=== PATIENT | male | born 1990 | race Caucasian/White ===

== ENCOUNTER 2023-08-07 08:15 | Outpatient (OUT) | payer BC, SELFPAY ==
[2023-08-07 12:59] LABS: Alanine Aminotransferase 41 U/L (16-63); Albumin Level 3.6 g/dL (3.4-5.0); Alkaline Phosphatase 84 U/L (46-116); Anion Gap 11.9; Aspartate Amino Transferase 14 U/L (15-37); BUN Creatinine Ratio 17.8; Bilirubin Total 0.7 mg/dL (0.2-1.0); Calcium 8.9 mg/dL (8.5-10.1); Carbon Dioxide 28.9 mmol/L (21.0-32.0); Chloride 101 mmol/L (98-107); Cholesterol 205 mg/dL (<=200); Estimated GFR (African America >60 (>=60); Estimated GFR (Non-African Ame >60 (>=60); Globulin 3.5 g/dL; Glucose 110 mg/dL (74-106); HDL Cholesterol 34 mg/dL (40-60); Potassium 3.8 mmol/L (3.5-5.1); Sodium 138 mmol/L (136-145); Total Protein 7.1 g/dL (6.4-8.2); Triglycerides 152 mg/dL (<=150); VLDL CHOLESTEROL 30.4 mg/dL
== END 2023-08-07 08:16 | disposition home or self-care (01) ==
LOC: LAB 08:19
PROVIDERS: PCP Family Medicine; Visit Provider Family Medicine
DX: Z13.6 Encounter for screening for cardiovascular disorders (principal)
CPT/HCPCS: 36415; 80053; 80061

== ENCOUNTER 2024-04-12 00:09 | Emergency (ER) | payer BC, SELFPAY ==
--- OUTSIDE RECORDS SUMMARY | 2024-04-12 00:16 | XMS_ITS | CCD ---
Author Organization [facility] Inform ion Partnership [facility] Care Team Providers Care Outbound Sales Professional Name Role Phone Luna Richey Unavailable LorenzoMireya Unavailable CHERRI, DR TORIBIO Willson Admitting Unavailable FURLONG, DR TORIBIO Willson Attending Unavailable FURLONG, DR TORIBIO Willson Primary Care Unavailable FURLONG, DR TORIBIO Willson Consulting Unavailable Furlong Toribio CARRENO Primary Care Provider Toribio Hurley MD Primary Care Provider [phone] DENNISE PEDERSEN Attending Unavailable HAZEL JULIAN Attending Unavailable ISI LAURENT Referring Unavailable RUSHER, DENNISE Mullins Attending Unavailable LASIHA PARK Attending Unavailable ISI LAURENT Referring Unavailable RUSHER, DENNISE Mullins Attending Unavailable RUSHER, DENNISE Mullins Referring Unavailable KUNISI Mullins Attending Unavailable FURLONG, TORIBIO G Referring Unavailable FURLONG, TORIBIO Willson Primary Care Unavailable FURLONG, TORIBIO Willson Attending Unavailable FURLONG, TORIBIO Willson Referring Unavailable FURLONG, TORIBIO Willson Primary Care Unavailable CAMI VILLALOBOS Attending Unavailable FURLONG, TORIBIO G Referring Unavailable FURLONG, TORIBIO Willson Primary Care Unavailable FURLONG, TORIBIO Willsno Referring Unavailable FURLONG, TORIBIO Willson Primary Care Unavailable Allergies Allergy Classification Reported Allergen(s) Allergy Type Date of Onset Reaction(s) Facility (9 sources) Ampicillin; Translations: [AMPICILLIN] Drug Allergy 02-12-20 19 Unknown [facility] Work Phone: (3 sources) Cefaclor; Translations: [Ceclor] Drug Allergy 07-01-20 unknow from young age [facility] (3 sources) Cefotaxime; Translations: [Claforan] Drug Allergy 07-01-20 16 see above [facility] (3 sources) Erythromycin / sulfiSOXAZOLE; Translations: [Pediazole] Drug Allergy 07-01-20 16 see above [facility] (2 sources) Sulfonamides (Antibiotic) Propensity to adverse reactions see above [facility] Other (1 source) Penicillins Drug allergy (disorder) 01-13-20 14 [facility] (1 source) Sulfonamides (Antibiotic) Drug allergy (disorder) 07-01-20 16 [facility] (7 sources) Cefaclor; Translations: [CEFACLOR] Drug Allergy 02-12-20 [facility] (7 sources) Cefotaxime; Translations: [CEFOTAXIME] Drug Allergy 02-12-20 19 [facility] (5 sources) Erythromycin / sulfiSOXAZOLE; Translations: [ERYTHROMYCIN-HARLEY LFISOXAZOLE] Drug Allergy 02-12-20 [facility] (7 sources) Sulfonamides (Antibiotic); Translations: [SULFA (SULFONAMIDE ANTIBIOTICS)] Propensity to adverse reactions to drug 02-12-20 [facility] Medications Current Medications Medication Drug Class(es) Dates Sig (Normalized) Sig (Original) albuterol 0.83 mg/ml inhalation solution (10 sources) beta2-Adrenergic Agonist Start: 05-14-2023 End: 10-31-2023 take 3 mL by inhalation every six hours as needed for wheezing albuterol (PROVENTIL,VENTOLIN ) 2.5 mg /3 mL (0.083 %) nebulizer solution Indications: Mild intermittent asthma with exacerbation , Upper respiratory tract infection, unspecified type Inhale 3 mL (2.5 mg total) by nebulization every 6 (six) hours as needed for wheezing. 150 mL 1 10/31/2023 Active Start: 10-17-2022 take 2 puff(s) by in halation every four hours as needed albuterol (PROVENTIL HFA;VENTOLIN HFA) 90 mcg/actuation inhaler Indications: Mild intermittent asthma with exacerbation albuterol sulfate HFA 90 mcg/actuation aerosol inhaler INHALE 2 PUFFS EVERY 4 HOURS BY INHALATION ROUTE NEEDED 18 g 6 10/17/2022 Active Start: 10-17-2022 take 2 puff(s) by in halation every four hours as needed albuterol HFA 90 mcg/act inhaler albuterol sulfate HFA 90 mcg/actuation aerosol inhaler INHALE 2 PUFFS EVERY 4 HOURS BY INHALATION ROUTE NEEDED 0 10/17/2022 Active Albuterol Active azithromycin 250 mg oral tablet (1 source) Macrolide Antimicrobial Start: 10-31-2023 End: 11-05-2023 take 1 tablet by mouth in the morning, then take 2 tablets by mouth once daily, then take 1 tablet by mouth once daily azithromycin (ZITHROMAX) 250 mg tablet Indications: Mild intermittent asthma with exacerbation Take 1 tablet (250 mg total) by mouth in the morning for 5 days. Take 2 tablets the first day, then 1 tablet daily for 4 days.. 6 tablet 0 10/31/2023 11/05/2023 Active brompheniramine maleate 0.4 mg/ml / dextromethorphan hydrobromide 2 mg/ml / pseudoephedrine hydrochloride 6 mg/ml oral solution (2 sources) alpha-Adrenergic Agonist, Uncompetitive J-rcllgn-D-aspartat e Receptor Antagonist, Sigma-1 Agonist Start: 10-31-2023 take 5 mL by mouth four times daily as needed brompheniramine- pseudoeph-DM 2-30-10 mg/5 mL syrup Indications: Mild intermittent asthma with exacerbation Take 5 mL by mouth 4 (four) times a day as needed for allergies. 120 mL 1 10/31/2023 Active 60 actuat budesonide 0.09 mg/actuat dry powder inhaler (3 sources) Corticosteroid Start: 07-13-2023 take 1 puff(s) by inhalation at bedtime budesonide (Pulmicort Flexhaler) 90 MCG/ACT inhaler INHALE 1 PUFF IN THE MORNING AND BEFORE BEDTIME 0 07/13/2023 Active Start: 07-13-2023 End: 09-19-2023 take 1 puff(s) by inhalation at bedtime budesonide (PULMICORT FLEXHALER) 90 mcg/actuation inhaler Indications: Unspecified asthma, uncomplicated INHALE 1 PUFF IN THE MORNING AND BEFORE BEDTIME 1 each 1 07/13/2023 09/19/2023 Discontinued (Therapy completed) dexamethasone 1 mg/ml / tobramycin 3 mg/ml ophthalmic suspension (1 source) Aminoglycoside Antibacterial, Corticosteroid Start: 01-11-2020 take 1 drop(s) into the eye(s) three times daily TobraDex 0.3-0.1 % 1 drop into affected eye Ophthalmic Three times a day for 7 days December, Active doxycycline hyclate 100 mg oral capsule (1 source) Tetracycline-class Drug Start: 09-19-2023 End: 09-26-2023 take 1 capsule by mouth in the morning, then take 1 capsule by mouth at bedtime doxycycline (VIBRAMYCIN) 100 mg capsule Take 1 capsule (100 mg total) by mouth in the morning and 1 capsule (100 mg total) before bedtime. Do all this for 7 days. 14 capsule 0 09/19/2023 09/26/2023 Active fexofenadine hydrochloride 180 mg oral tablet (3 sources) Histamine-1 Receptor Antagonist take 180 mg by mouth once daily fexofenadine HCl (PARIS ORAL) Take 180 mg by mouth daily. 0 Active fluticasone propionate 0.05 mg/actuat metered dose nasal spray (3 sources) Corticosteroid Start: 06-05-2023 take 2 spray(s) nasal route once daily fluticasone propionate (FLONASE) 50 mcg/actuation nasal spray Indications: Acute nasopharyngitis (common cold) SPRAY 2 SPRAYS INTO EACH NOSTRIL EVERY DAY FOR 30 DAYS 48 mL 1 06/05/2023 Active 30 actuat fluticasone furoate 0.1 mg/actuat / vilanterol 0.025 mg/actuat dry powder inhaler (4 sources) Corticosteroid, beta2-Adrenergic Agonist Start: 11-11-2023 take 1 puff(s) by inhalation in the morning fluticasone furoate-vilanteroL (BREO ELLIPTA) 100-25 mcg/dose blister with device INHALE 1 PUFF IN THE MORNING 60 each 1 11/11/2023 Active Start: 09-19-2023 End: 11-11-2023 take 1 puff(s) by inhalation in the morning fluticasone furoate-vilanteroL (BREO ELLIPTA) 100-25 mcg/dose blister with device Inhale 1 puff in the morning. 28 each 1 09/19/2023 11/11/2023 Discontinued hydroCHLOROthiazide 12.5 mg oral capsule (5 sources) Thiazide Diuretic Start: 07-30-2023 take 1 capsule by mouth once daily hydroCHLOROthiazide (MICROZIDE) 12.5 mg capsule Indications: Primary hypertension Take 1 capsule (12.5 mg total) by mouth daily. 90 capsule 3 07/30/2023 Active meloxicam 15 mg oral tablet (1 source) Nonsteroidal Anti-inflammatory Drug Start: 09-03-2023 End: 09-24-2023 take 1 tablet by mouth in the morning MOBIC 15 mg tablet Take 1 tablet (15 mg total) by mouth in the morning. 0 09/03/2023 09/24/2023 Active methylPREDNISolone (2 sources) Corticosteroid Start: 09-03-2023 methylPREDNISolone (Medrol Dospak) 4 MG tablets Indications: Plantar fasciitis Take as directed on package. 21 tablet 0 09/03/2023 Active montelukast 10 mg oral tablet (6 sources) Leukotriene Receptor Antagonist Start: 12-26-2022 take 1 tablet by mouth once daily montelukast (SINGULAIR) 10 mg tablet TAKE 1 TABLET BY MOUTH EVERY DAY 90 tablet 3 12/26/2022 Active Singulair Active predniSONE 20 mg oral tablet (2 sources) Start: 10-31-2023 End: 11-07-2023 take 1 tablet by mouth in the morning predniSONE (DELTASONE) 20 mg tablet Indications: Mild intermittent asthma with exacerbation Take 1 tablet (20 mg total) by mouth in the morning for 7 days. 7 tablet 0 10/31/2023 11/07/2023 Active Start: 05-17-2022 take 3 tablets by [facility] every twenty-four hours prednisone 20 MG 3 tablets Orally daily for 5 days Apr, Active Problems Active Problems Problem Classification Problem Date Documented Date Episodic/Chronic Asthma (13 sources) Acute exacerbation of asthma co-occurrent with allergic rhinitis; Translations: [Unspecified asthma with (acute) exacerbation] Onset: 05-06-2018 Chronic Diabetes mellitus without complication (1 source) Hyperglycemia, unspecified; Translations: [Hyperglycemia, unspecified] Onset: 02-04-2024 Episodic Disorders of lipid metabolism (3 sources) Hypertriglyceridemia; Translations: [Pure hyperglyceridemia] Onset: 05-27-2019 06-21-2022 Chronic Essential hypertension (5 sources) Essential hypertension; Translations: [Essential (primary) hypertension] Onset: 07-30-2023 07-30-2023 Chronic Immunizations and screening for infectious disease (3 sources) Encounter for screening for other viral diseases; Translations: [Contact with and (suspected) exposure to other viral communicable diseases] Onset: 06-15-2021 Resolved: 06-15-2021 Episodic Other connective tissue disease (1 source) Plantar fascial fibromatosis; Translations: [Plantar fascial fibromatosis] Onset: 02-04-2024 Episodic Other inflammatory condition of skin (1 source) Sunburn of second degree; Translations: [Sunburn of second degree] Onset: 02-04-2024 Episodic Other nutritional; endocrine; and metabolic disorders (3 sources) High density lipoprotein deficiency ; Translations: [Lipoprotein deficiency] Onset: 05-27-2019 06-21-2022 Chronic Other nutritional; endocrine; and metabolic disorders (3 sources) Morbid obesity; Translations: [Morbid (severe) obesity due to excess calories] Onset: 07-28-2019 06-21-2022 Chronic Other nutritional; endocrine; and metabolic disorders (2 sources) Morbid (severe) obesity due to excess calories; Translations: [Morbid (severe) obesity due to excess calories] Onset: 06-21-2022 Chronic Other screening for suspected conditions (not mental disorders or infectious disease) (4 sources) Encounter for screening for cardiovascular disorders; Translations: [ENC FOR SCREENING FOR CV DISORDERS] Onset: 07-18-2022 Episodic Otitis media and related conditions (1 source) Dysfunction of left eustachian tube; Translations: [Unspecified Eustachian tube disorder, left ear] 10-09-2023 Episodic Past or Other Problems Problem Classification Problem Date Documented Da te Episodic/Chronic Mood disorders (3 sources) Mood disorders Onset: 09-19-2023 Resolved: 10-31-2023 09-19-2023 Other lower respiratory disease (1 source) Shortness of breath Onset: 10-31-2023 Episodic Other upper respiratory disease (1 source) Pain in throat Onset: 10-31-2023 Episodic Other upper respiratory infections (5 sources) Acute recurrent maxillary sinusitis; Translations: [Acute maxillary sinusitis] Onset: 09-19-2023 09-19-2023 Episodic Unclassified (3 sources) Onset: 12-05-2023 12-05-2023 Results Test Name Value Interpretation Reference Range Facility BASIC METABOLIC PANLon 02-03 Anion gap [Moles/Vol] 10 mmol/L Normal 5-15 [facility] Comment on above: Performed By: #### JING Wood MP #### [facility] ([id number]) [address], [address] [place] [address] Calcium [Mass/Vol] 9.6 mg/dL Normal 8.5-10.5 [facility] Comment on above: Performed By: #### JING Wood MP #### [facility] ([id number]) [address], [address] [place] [address] Chloride [Moles/Vol] 101 mmol/L Normal 98-109 [facility] Comment on above: Performed By: #### JING Wood MP #### [facility] ([id number]) [address], [address] [place] [address] CO2 [Moles/Vol] 27 mmol/L Normal 22-32 [facility] Comment on above: Performed By: #### JING Wood MP #### [facility] ([id number]) [address], [address] [place] [address] Creatinine [Mass/Vol] 0.84 mg/dL Normal 0.60-1.30 [facility] Comment on above: Result Comment: METH OD TRACEABLE TO IDMS STANDARD Performed By: #### JING Wood MP #### [facility] ([id number]) [address], [address] [place] [address] eGFR (CKD-EPI) NON-RACE DEPENDENT >90 Normal >59 [facility] Comment on above: Result Comment: Reported eGFR is based on the CKD-EPI 2020 equation that does not use a race coefficient. Performed By: #### JING Wood MP #### [facility] ([id number]) [address], [address] [place] [address] Glucose [Mass/Vol] 90 mg/dL Normal 65-99 [facility] Comment on above: Performed By: #### B JING DOSS #### [facility] ([id number]) [address], [address] [place] [address] Potassium [Moles/Vol] 3.5 mmol/L Normal 3.5-5.0 [facility] Comment on above: Performed By: #### B SELAM, JING #### [facility] ([id number]) [address], [address] [place] [address] Sodium [Moles/Vol] 138 mmol/L Normal 134-146 [facility] Comment on above: Performed By: #### B JING DOSS #### [facility] ([id number]) [address], [address] [place] [address] Urea nitrogen [Mass/Vol] 13 mg/dL Normal 5-23 [facility] Comment on above: Performed By: #### B JING DOSS #### [facility] ([id number]) [address], [address] [place] [address] HGB A1C (GLYCO-HGB)on 2023 Glucose [Mass/Vol] 111 mg/dL Normal [facility] Comment on above: Performed By: #### JING Wood MP #### [facility] ([id number]) [address], [address] [place] [address] HbA1c (Bld) [Mass fraction] 5.5 % Normal 4.4-5.6 [facility] Comment on above: Result Comment: NOTE ADA Guidelines Result HgbA1c Normal : less than 5.7 % Prediabetes : 5.7 % to 6.4 % Diabetes : > 6.4 % Use with caution in patients with abnormal hemoglobin variants as the half-life of red blood cells and in vivo glycation rates are affected. Performed By: #### B JING DOSS #### [facility] ([id number]) [address], [address] [place] [address] Auditory function testson Bilateral Normal hearing [facility] e POCT rapid strep Aon 024 Internal Services Delivery Driver Check Completed and Passed Yes [facility] Interpretation and review of laboratory results Normal [facility] S. pyogenes Ag IA Ql (Unsp spec) Negative Negative [facility] LIPID PROFILEon 07-18-2022 CHOL-HDL RATIO NORM SEE BELOW Normal [facility] Comment on above: Result Comment: 3.3 - 4.4 LOW RISK 4.4 - 7.1 AVERAGE RISK 7.1 - 11.0 MODERATE RISK >11.0 HIGH RISK Performed By: #### C MP, LIPID #### [facility] [address] [address] [address] Lois Ugalde Cholesterol [Mass/Vol] 176 mg/dL Normal <=200 [facility] Comment on above: Performed By: #### C MP, LIPID #### [facility] [address] [address] [address] Lois Ugalde Cholesterol in HDL [Mass/Vol] 32 mg/dL Critically low 40-60 [facility] Comment on above: Performed By: #### C MP, LIPID #### [facility] [address] [address] [address] Lois Ugalde Cholesterol in LDL [Mass/Vol] 111.6 mg/dL Normal [facility] Comment on above: Performed By: #### C MP, LIPID #### [facility] [address] [address] [address] Lois Ugalde Cholesterol.total/C holesterol in HDL [Mass ratio] 5.5 {ratio} Normal [facility] Comment on above: Performed By: #### C MP, LIPID #### [facility] [address] [address] [address] Lois Ugalde HDL NORMAL > or = 60 mg/dl - LOW CARDIOVASCULAR RISK <40 mg/dl - HIGH CARDIOVASCULAR RISK Normal [facility] Comment on above: Performed By: #### C MP, LIPID #### [facility] [address] [place] [address] Dr. Lois Ugalde LDL CALC NORMAL SEE BELOW Normal [facility] Comment on above: Result Comment: <100 mg/dl OPTIMAL 100 - 129 mg/dl NEAR OR ABOVE OPTIMAL 130 - 159 mg/dl BORDERLINE HIGH 160 - 189 mg/dl HIGH >190 mg/dl VERY HIGH Performed By: #### C MP, LIPID #### [facility] [address] [place] [address] Dr. Lois Ugalde Triglyceride [Mass/Vol] 162 mg/dL Critically high <=150 [facility] Comment on above: Performed By: #### C MP, LIPID #### [facility] [address] [place] [address] Dr. Lois Ugalde VLDL CALC 32.4 mg/dL Normal [facility] Comment on above: Performed By: #### C MP, LIPID #### [facility] [address] [place] [address] Dr. Lois Ugalde PROF 14(COMP METB)on 022 Albumin [Mass/Vol] 3.8 g/dL Normal 3.4-5.0 [facility] Comment on above: Performed By: #### C MP, LIPID #### [facility] [address] [place] [address] Dr. Lois Ugalde Albumin/Globulin [Mass ratio] 1.2 {ratio} Normal [facility] Comment on above: Performed By: #### C MP, LIPID #### [facility] [address] [place] [address] Dr. Lois Ugalde ALP [Catalytic activity/Vol] 69 U/L Normal 46-116 [facility] Comment on above: Performed By: #### C MP, LIPID #### [facility] [address] [place] [address] Dr. Lois Ugalde ALT [Catalytic activity/Vol] 37 U/L Normal 16-63 [facility] Comment on above: Performed By: #### C MP, LIPID #### [facility] [address] [place] [address] Dr. Lois Ugalde Anion gap [Moles/Vol] 10.5 mmol/L Normal [facility] Comment on above: Performed By: #### C MP, LIPID #### [facility] [address] [place] [address] Dr. Lois Ugalde AST [Catalytic activity/Vol] 18 U/L Normal 15-37 [facility] Comment on above: Performed By: #### C MP, LIPID #### [facility] [address] [place] [address] Dr. Lois Ugalde Bilirubin [Mass/Vol] 0.9 mg/dL Normal 0.2-1.0 [facility] Comment on above: Performed By: #### C MP, LIPID #### [facility] [address] [place] [address] Dr. Lois Ugalde Calcium [Mass/Vol] 9.0 mg/dL Normal 8.5-10.1 [facility] Comment on above: Performed By: #### C MP, LIPID #### [facility] [address] [place] [address] Dr. Lois Ugalde Chloride [Moles/Vol] 105 mmol/L Normal 98-107 [facility] Comment on above: Performed By: #### C MP, LIPID #### [facility] [address] [place] [address] Dr. Lois Ugalde CO2 [Moles/Vol] 28.7 mmol/L Normal 21.0-32.0 [facility] Comment on above: Performed By: #### C MP, LIPID #### [facility] [address] [place] [address] Dr. Lois Ugalde Creatinine [Mass/Vol] 0.86 mg/dL Normal 0.70-1.30 [facility] Comment on above: Performed By: #### C MP, LIPID #### [facility] [address] [place] [address] Dr. Lois Ugalde EGFR-AF TRISTANIAN >60 Normal >=60 [facility] Comment on above: Performed By: #### C MP, LIPID #### [facility] [address] [place] [address] Dr. Lois Ugalde EGFR-NON AF TRISTANIAN >60 Normal >=60 [facility] Comment on above: Performed By: #### C MP, LIPID #### [facility] [address] [place] [address] Dr. Lois Ugalde Globulin (S) [Mass/Vol] 3.1 g/dL Normal [facility] Comment on above: Performed By: #### C MP, LIPID #### [facility] [address] [place] [address] Dr. Lois Ugalde Glucose [Mass/Vol] 99 mg/dL Normal 74-106 [facility] Comment on above: Performed By: #### C MP, LIPID #### [facility] [address] [place] [address] Dr. Lois Ugalde Potassium [Moles/Vol] 4.2 mmol/L Normal 3.5-5.1 [facility] Comment on above: Performed By: #### C MP, LIPID #### [facility] [address] [place] [address] Dr. Lois Ugalde Protein [Mass/Vol] 6.9 g/dL Normal 6.4-8.2 [facility] Comment on above: Performed By: #### C MP, LIPID #### [facility] [address] [place] [address] Dr. Lois Ugalde Sodium [Moles/Vol] 140 mmol/L Normal 136-145 [facility] Comment on above: Performed By: #### C MP, LIPID #### [facility] [address] [place] [address] Dr. Lois Ugalde Urea nitrogen [Mass/Vol] 12.0 mg/dL Normal 7.0-18.0 [facility] Comment on above: Performed By: #### C MP, LIPID #### [facility] [address] [place] [address] Dr. Lois Ugalde Urea nitrogen/Creatinine [Mass ratio] 14.0 mg/mg Normal [facility] Comment on above: Performed By: #### C MP, LIPID #### [facility] [address] [place] [address] Dr. Lois Ugalde SARS-CoV-2 (COVID-19) RNA NA A+probe Ql (Resp)on 05-17-2022 SARS-CoV-2 (COVID-19) RNA ADELA+probe Ql (Unsp spec) Negative [facility] Other COMPREHENSIVE METABOLIC PANE [facility] 07-05-2021 Albumin [Mass/Vol] 4.5 g/dL Normal 3.6-5.1 [facility] Comment on above: Performed By: #### 7 600, [id number] #### [facility] of [address], [address] [place] [address] [employer] Consultant: Lg Butcher MD Albumin/Globulin [Mass ratio] 2.0 {ratio} Normal 1.0-2.5 [facility] Comment on above: Performed By: #### 7 600, [id number] #### [facility] [address] [place] [address] [employer] Consultant: Lg Butcher MD ALP [Catalytic activity/Vol] 72 U/L Normal 36-130 [facility] Comment on above: Performed By: #### 7 600, [id number] #### [facility] [address] [place] [address] [employer] Consultant: Lg Butcher MD ALT [Catalytic activity/Vol] 31 U/L Normal 9-46 [facility] Comment on above: Performed By: #### 7 600, [id number] #### [facility] [address] [place] [address] [employer] Consultant: Lg Butcher MD AST [Catalytic activity/Vol] 21 U/L Normal 10-40 [facility] Comment on above: Performed By: #### 7 600, [id number] #### [facility] [address] [place] [address] [employer] Consultant: Lg Butcher MD Bilirubin [Mass/Vol] 0.9 mg/dL Normal 0.2-1.2 [facility] Comment on above: Performed By: #### 7 600, [id number] #### [facility] [address] [address] [employer]ant: Lg Butcher MD BUN/CREATININE RATIO NOT APPLICABLE Normal 6-22 [facility] Comment on above: Performed By: #### 7 600, 79721 #### [facility] [address] [place] [address] [employer] Consultant: Lg Butcher MD Calcium [Mass/Vol] 9.6 mg/dL Normal 8.6-10.3 [facility] Comment on above: Performed By: #### 7 600, 09165 #### [facility] [address] [place] [address] [employer] Consultant: Lg Butcher MD Chloride [Moles/Vol] 104 mmol/L Normal 98-110 [facility] Comment on above: Performed By: #### 7 600, [id number] #### [facility] [place] [address] [employer] Consultant: Lg Butcher MD CO2 [Moles/Vol] 28 mmol/L Normal 20-32 [facility] Comment on above: Performed By: #### 7 600, [id number] #### [facility] [place] [address] [employer] Consultant: Lg Butcher MD Creatinine [Mass/Vol] 0.85 mg/dL Normal 0.60-1.35 [facility] Comment on above: Performed By: #### 7 600, [id number] #### [facility] [place] [address] [employer] Business Consultant: Lg Butcher MD eGFR NON-AFR. TRISTANIAN 115 mL/min/1.73m2 Normal > OR = 60 [facility] Comment on above: Performed By: #### 7 600, 82715 #### [facility] of [place] [address] [employer] Consultant: Lg Butcher MD GFR/1.73 sq M.predicted among blacks MDRD (S/P/Bld) [Vol rate/Area] 134 mL/min/{1.73_m2} Normal > OR = 60 [facility] Comment on above: Performed By: #### 7 600, 85738 #### [facility] [place] [address] [employer] Consultant: Lg Butcher MD Globulin (S) [Mass/Vol] 2.2 g/dL Normal 1.9-3.7 [facility] Comment on above: Performed By: #### 7 600, 67431 #### [facility] of [address], [address] [place] [address] [employer] Consultant: Lg Butcher MD Glucose [Mass/Vol] 81 mg/dL Normal 65-99 [facility] Comment on above: Result Comment: Fasting reference interval Performed By: #### 7 600, [id number] #### [facility] [place] [address] [employer] Business Consultant: Lg Butcher MD Potassium [Moles/Vol] 4.1 mmol/L Normal 3.5-5.3 [facility] Comment on above: Performed By: #### 7 600, [id number] #### [facility] [place] [address] [employer] Business Consultant: Lg Butcher MD Protein [Mass/Vol] 6.7 g/dL Normal 6.1-8.1 [facility] Comment on above: Performed By: #### 7 600, 16209 #### [facility] [place] [address] [employer] Consultant: Lg Butcher MD Sodium [Moles/Vol] 140 mmol/L Normal 135-146 [facility] Comment on above: Performed By: #### 7 600, 29889 #### [facility] [place] [address] [employer] Consultant: Lg Butcher MD Urea nitrogen [Mass/Vol] 12 mg/dL Normal 7-25 [facility] Comment on above: Performed By: #### 7 600, 99765 #### [facility] of [address], [address] [place] [address] [employer] Consultant: Lg Butcher MD LIPID PANEL, [facility] 06-26 Cholesterol [Mass/Vol] 205 mg/dL High <200 [facility] Comment on above: Order Comment: FASTI NG:YES FASTING: YES Performed By: #### 7 600, 23090 #### [facility] [address], [address] [place] [address] [employer] Consultant: Lg Butcher MD Cholesterol in HDL [Mass/Vol] 35 mg/dL Low > OR = 40 [facility] Comment on above: Order Comment: FASTI NG:YES FASTING: YES Performed By: #### 7 600, 80515 #### [facility] [address], [address] [place] [address] [employer] Business Consultant: Lg Butcher MD Cholesterol in LDL [Mass/Vol] 138 mg/dL High [facility] Comment on above: Order Comment: FASTI NG:YES FASTING: YES Result Comment: Refe rence range: <100 Desirable range <100 mg/dL for primary prevention; <70 mg/dL for patients with CHD or diabetic patients with > or = 2 CHD risk factors. LDL-C is now calculated using the Celestine-Song calculation, which is a validated novel method providing better accuracy than the Friedewald equation in the estimation of LDL-C. Celestine WBEER et al. SMOOTH. 2013;310(19): 3179-0241 (http://education.[employer].inEarth/faq/UMJ784) Performed By: #### 7 600, 35785 #### [facility] [address], [address] [place] [address] [employer]anchise Business Consultant: Lg Butcher MD Cholesterol.total/C holesterol in HDL [Mass ratio] 5.9 {ratio} High <5.0 [facility] Comment on above: Order Comment: FASTI NG:YES FASTING: YES Performed By: #### 7 600, 86009 #### [facility] [address], [address] [place] [address] [employer] Business Consultant: Lg Butcher MD NON HDL CHOLESTEROL 170 mg/dL (calc) High <130 [facility] Comment on above: Order Comment: FASTI NG:YES FASTING: YES Result Comment: For patients with diabetes plus 1 major ASCVD risk factor, treating to a non-HDL-C goal of <100 mg/dL (LDL-C of <70 mg/dL) is considered a therapeutic option. Performed By: #### 7 600, 63557 #### [facility] [address] [place] [address], [address] [place] [address] [employer] Consultant: Lg Butcher MD Triglyceride [Mass/Vol] 183 mg/dL High <150 [facility] Comment on above: Order Comment: FASTI NG:YES FASTING: YES Performed By: #### 7 600, 96796 #### [facility] [address] [place] [address], [address] [place] [address] [employer] Consultant: Lg Butcher MD COVID Quick Testingon 2020 Result Negative [facility] Other Vital Signs Date Time Vital Sign Value Performing Clinician Facility 10-31-2023 11:33-0500 Body height 180.3 cm Isi Mehran HAYES-ELEMENTARY EDUCATION TEACHER Work Phone: [facility] 10-31-2023 11:33-0500 Body mass index (BMI) [Ratio] 47.11 kg/m2 Isi Laurent APRN-ELEMENTARY EDUCATION TEACHER Work Phone: [facility] 10-31-2023 11:33-0500 Body temperature 98.71 [degF] Isi Laurent APRN-ELEMENTARY EDUCATION TEACHER Work Phone: [facility] 10-31-2023 11:33-0500 Body weight 153.22 kg Isi Laurent APRN-ELEMENTARY EDUCATION TEACHER Work Phone: [facility] 10-31-2023 11:33-0500 Diastolic blood pressure 90 mm[Hg] Isi Laurent APRN-ELEMENTARY EDUCATION TEACHER Work Phone: [facility] 10-31-2023 11:33-0500 Heart rate 91 /min Isi Laurent APRN-ELEMENTARY EDUCATION TEACHER Work Phone: [facility] 10-31-2023 11:33-0500 SaO2% (BldA) [Mass fraction] 96 % Isi Laurent WORKPLACE RELATIONS ADVISER-ELEMENTARY EDUCATION TEACHER Work Phone: [facility] 10-31-2023 11:33-0500 Systolic blood pressure 130 mm[Hg] Isi Laurent WORKPLACE RELATIONS ADVISER-ELEMENTARY EDUCATION TEACHER Work Phone: [facility] 09-19-2023 15:10-0500 Body height 180.3 cm Camiritesh Villalobos WORKPLACE RELATIONS ADVISER-OFFSHORE DIVER Work Phone: [facility] 09-19-2023 15:10-0500 Body mass index (BMI) [Ratio] 47.23 kg/m2 Cami Devin WORKPLACE RELATIONS ADVISER-OFFSHORE DIVER Work Phone: [facility] 09-19-2023 15:10-0500 Body temperature 97.9 [degF] Camiritesh Villalobos WORKPLACE RELATIONS ADVISER-OFFSHORE DIVER Work Phone: [facility] 09-19-2023 15:10-0500 Body weight 153.59 kg Cami Devin WORKPLACE RELATIONS ADVISER-OFFSHORE DIVER [facility] 09-19-2023 15:10-0500 Diastolic blood pressure 80 mm[Hg] Camiritesh Villalobos WORKPLACE RELATIONS ADVISER-OFFSHORE DIVER Work Phone: [facility] 09-19-2023 15:10-0500 Heart rate 95 /min Camiritesh Villalobos WORKPLACE RELATIONS ADVISER-OFFSHORE DIVER Work Phone: [facility] 09-19-2023 15:10-0500 SaO2% (BldA) [Mass fraction] 96 % Cami Devin WORKPLACE RELATIONS ADVISER-OFFSHORE DIVER [facility] 09-19-2023 15:10-0500 Systolic blood pressure 140 mm[Hg] Cami Devin WORKPLACE RELATIONS ADVISER-OFFSHORE DIVER [facility] 05-17-2022 11:35-0400 Body height 180.34 cm Mireya Ventura Other [facility] Other 05-17-2022 11:35-0400 Body mass index (BMI) [Ratio] 44.63 kg/m2 Mireya Ventura Other [facility] Other 05-17-2022 11:35-0400 Body temperature 98.3 [degF] Mireya Ventura Other [facility] Other 05-17-2022 11:35-0400 Body weight 145.15 kg Mireya Ventura Other [facility] Other 05-17-2022 11:35-0400 Respiratory rate 18 /min Mireya Ventura Other [facility] Other 05-17-2022 11:35-0400 SaO2% (BldA) [Mass fraction] 96 % Mireya Ventura Other [facility] Other Encounters Encounter Date Encounter Type Care Provider Facility Start: 02-04-2024 End: 02-04-[address] [facility] Start: 02-04-2024 End: 02-04-2024 ambulatory [facility] Start: 11-11-2023 Refill Cami Villalobos WORKPLACE RELATIONS ADVISER-OFFSHORE DIVER Work Phone: [facility] Start: 10-31-2023 End: 10-31-2023 Office outpatient visit 15 minutes Brigida Kuns WORKPLACE RELATIONS ADVISER-ELEMENTARY EDUCATION TEACHER Work Phone: [facility] Comment on above: Mild intermittent as thma with exacerbation (Primary Dx); Upper respiratory tract infection, unspecified type Start: 10-31-2023 End: 10-31-2023 ambulatory ISI LAURENT [facility] Start: 10-23-2023 End: 10-23-2023 ambulatory LAISHA H TIMMIS Not Available Start: 10-16-2023 End: 10-16-2023 ambulatory DENNISE S RUSHER Not Available Start: 10-09-2023 Bamboo flowsheet Hazel orta CCC-A Work Phone: [facility] Start: 10-09-2023 Bamboo flowsheet Hazel orta CCC-A Work Phone: [facility] Start: 10-09-2023 End: 10-09-2023 ambulatory HAZEL JULIAN Not Available Start: 10-09-2023 End: 10-09-2023 Clinical Support Hazel Julian CCC-A Work Phone: [facility] Comment on above: Dysfunction of left eustachian tube (Primary Dx) Start: 09-19-2023 End: 09-19-2023 Office outpatient visit 15 minutes [facility] WORKPLACE RELATIONS ADVISER-OFFSHORE DIVER Work Phone: [facility] Comment on above: Acute recurrent maxi llary sinusitis (Primary Dx); Mild persistent asthma without complication; Pharyngitis, unspecified etiology Start: 09-19-2023 End: 09-19-2023 ambulatory [facility] Start: 09-03-2023 End: 09-03-2023 ambulatory DENNISE S RUSHER Not Available Start: 07-25-2023 End: 07-25-2023 ambulatory DENNISE S RUSHER Not Available Start: 07-18-2022 End: 07-19-[address] TORIBIO HURLEY Facility: Start: 05-17-2022 End: 05-17-2022 ambulatory Mireya Ventura Other [facility] Other Start: 05-17-2022 Office outpatient vi sit 25 minutes Mireya Ventura [facility] [place] Start: 06-15-2021 End: 06-15-2021 ambulatory Luna Richey Other [facility] Other Start: 06-15-2021 Office outpatient vi sit 5 minutes Luna Richey [facility] [place] Procedures Date Procedure Procedure Detail Performing Clinician Start: 02-04-2024 Follow-up visit Follow-up TORIBIO HURLEY Start: 10-31-2023 Adult depression scr eening assessment Isi Laurent WORKPLACE RELATIONS ADVISER-ELEMENTARY EDUCATION TEACHER Work Phone: Start: 10-09-2023 AUDITORY FUNCTION TESTS Hazel Jovani Iesha [facility] Work Phone: Start: 09-19-2023 Iaadiadoo streptococ cus group a Cami Villalobos WORKPLACE RELATIONS ADVISER-OFFSHORE DIVER Work Phone: Start: 09-19-2023 Adult depression scr eening assessment Cami Villalobos WORKPLACE RELATIONS ADVISER-[facility] Work Phone: Plan of Treatment Date Care Activity Detail Author Start: 05-13-2028 DTaP,Tdap and Td Vaccines (2 - Td or Tdap) DTaP,Tdap and Td Vaccines (2 - Td or Tdap) [facility] Start: 10-30-2024 Adult BMI Screening Adult BMI Screen ing [facility] Start: 10-30-2024 Depression Screening Depression Scre ening [facility] Start: 10-30-2024 Tobacco Screening Tobacco Screening [facility] Start: 09-19-2024 Adult BMI Screening Adult BMI Screen ing [facility] Start: 09-19-2024 Depression Screening Depression Scre ening [facility] Start: 09-19-2024 Tobacco Screening Tobacco Screening [facility] Start: 07-30-2024 Adult BMI Follow Up Plan Adult BMI Follow Up Plan [facility] Start: 02-04-2024 End: 02-04-2024 Patient encounter procedure 02/04/2024 1:30 PM EDT Office Visit [facility] [address] [place] [address] Toribio Hurley, [address] [place], [facility] [place] [address] [facility] Start: 10-23-2023 End: 10-23-2023 Patient encounter procedure 10/23/2023 8:10 AM EST Office Visit [facility] [address] [facility] [address] [place] [phone] Laisha Park MD [address] [facility] [address] [place] [address] [facility] Start: 10-16-2023 End: 10-16-2023 Patient encounter procedure 10/16/2023 9:00 AM EST Office Visit [facility] [address] [place] [id number] Dennise Pedersen, DIANE [address] [place] [address] [facility] Start: 10-09-2023 End: 10-09-2023 Clinical Support 10/09/2023 8:45 AM EST Clinical Support [facility] [address] [facility] [address] [place] [phone] Hazel Julian, [facility] [address] [place] [address] Arrived [facility] Comment on above: Arrived Start: 04-26-2023 Influenza vaccination Influenza Vacc ine [facility] Immunizations Immunization Date Immunization Notes Care Provider Fa cili 05-26-2019 Influenza, injectabl e, Madin Melly Canine Kidney, quadrivalent with preservative Cami Devin WORKPLACE RELATIONS ADVISER-OFFSHORE DIVER Work Phone: [facility] 05-26-2019 influenza virus vaccine, unspecified formulation Cami Devin WORKPLACE RELATIONS ADVISER-OFFSHORE DIVER Work Phone: [facility] 06-10-2018 Influenza, injectabl e, Madin Melly Canine Kidney, preservative free, quadrivalent Cami Devin WORKPLACE RELATIONS ADVISER-OFFSHORE DIVER Work Phone: [facility] 05-13-2018 tetanus toxoid, redu natalie diphtheria toxoid, and acellular pertussis vaccine, adsorbed Cami Devin WORKPLACE RELATIONS ADVISER-OFFSHORE DIVER Work Phone: [facility] Payers Date Payer Category Payer Unknown [id number] 1988 Unknown [id number] 2.16.84 [id number] 1988 Unknown [id number] 2.16.84 [id number] 1988 Unknown [id number] 2.16.84 [id number] 1988 Unknown [id number] 2.16.84 [id number] 1988 Unknown [id number] 2.16.84 [id number] 1988 Unknown [id number] 1988 Unknown [id number] [id number] 1988 Unknown [id number] 2.16.8 [id number] 1988 Unknown [id number] 2.16.8 [id number] 1988 Unknown [id number] 2.16.8 [id number] 1988 Unknown [id number] 2.16.8 [id number] 1959 [facility] [id number] Social History Date Type Detail Facility Unknown if ever smoked [facility] Other Start: 07-24-2022 End: 10-31-2023 Sex Assigned At [facility] Other Start: 07-24-2022 End: 07-25-2023 Tobacco smoking status NHIS Never smoked tobacco [facility] Start: 07-24-2022 End: 07-25-2023 Tobacco use and exposure Smokeless tobacco non-user [facility] Start: 09-19-2023 End: 10-31-2023 Alcohol intake Ex-drinker (finding) [facility] Start: 07-24-2022 End: 09-19-2023 Alcohol intake [facility] Do you belong to any clubs or organizations such as religious groups, unions, fraternal or athletic groups, or school groups? No [facility] Are you now , , , , never or living with a partner? [facility] How often to you hav e a drink containing alcohol? 2-3 time sa week [facility] How many standard dr inks containing alcohol do you have on a typical day? 1 or 2 [facility] How often do you hav e 6 or more drinks on 1 occasion? Never [facility] How hard is it for y ou to pay for the very basics like food, housing, medical care, and heating Not hard at all [facility] Do you feel stress - tense, restless, nervous, or anxious, or unable to sleep at night because your mind is troubled all the time - these days [OSQ] Not at all [facility] Start: 1990 Sex Assigned At Not on file [facility] Start: 09-03-2023 Alcohol intake Current drinker of alcohol (finding) [facility] How often to you hav e a drink containing alcohol? Monthly or less [facility] How often do you hav e 6 or more drinks on 1 occasion? Monthly [facility] Clinical Notes 06-15-2021 to 10-31-2023 Isi Laurent, LEONEL - 10/31/2023 11:40 AM Elina Julian CCC-Jovani - 10/09/2023 8:45 AM BASSEM Grant - 09/19/2023 3:10 PM EST Note Date & Type Note Facility 10-31-2023 History of Present illness Narrative Subjective Patient ID: Lowell Nolasco is a 32 y.o. male. Symptom onset Saturday of this week Chills, unknown fever as he hasn't checked his temperature Feels short of breath with exertion He started breathing treatments last night Throat feels dry and irritated Feels nauseated but hasn't thrown up Drinking ok His daughter had similar symptoms are just starting to resolve that started a week ago The following portions of the patient's history were reviewed and updated as appropriate: allergies, current medications, past family history, past medical history, past social history, past surgical history, problem list, and medication reconciliation was completed including current medication and post discharge medication. Review of Systems Constitutional: Positive for activity change, chills and fatigue. HENT: Positive for congestion, rhinorrhea and sore throat. Eyes: Negative. Respiratory: Positive for cough, shortness of breath and wheezing. Endocrine: Negative. Genitourinary: Negative. Musculoskeletal: Negative. Skin: Negative. Allergic/Immunologic: Negative. Neurological: Negative. Hematological: Negative. Psychiatric/Behavioral: Negative. Objective Physical Exam Vitals and nursing note reviewed. Constitutional: General: He is not in acute distress. Appearance: He is obese. HENT: Right Ear: Tympanic membrane, ear canal and external ear normal. Ears: Comments: Left tm is opaque but not red Nose: Congestion and rhinorrhea present. Mouth/Throat: Pharynx: Posterior oropharyngeal erythema present. Eyes: Conjunctiva/sclera: Conjunctivae normal. Cardiovascular: Rate and Rhythm: Normal rate and regular rhythm. Heart sounds: Normal heart sounds. No murmur heard. Pulmonary: Breath sounds: Rhonchi (posterior with exhalation) present. Musculoskeletal: Right lower leg: No edema. Left lower leg: No edema. Lymphadenopathy: Cervical: No cervical adenopathy. Skin: General: Skin is warm and dry. Neurological: Mental Status: He is alert and oriented to person, place, and time. Psychiatric: Thought Content: Thought content normal. Judgment: Judgment normal. Assessment/Plan Lowell was seen today for shortness of breath and sore throat. Diagnoses and all orders for this visit: Mild intermittent asthma with exacerbation - predniSONE (DELTASONE) 20 mg tablet; Take 1 tablet (20 mg total) by mouth in the morning for 7 days. - azithromycin (ZITHROMAX) 250 mg tablet; Take 1 tablet (250 mg total) by mouth in the morning for 5 days. Take 2 tablets the first day, then 1 tablet daily for 4 days.. - oylfaibxkwlxiiz-autpshgvi-GR 2-30-10 mg/5 mL syrup; Take 5 mL by mouth 4 (four) times a day as needed for allergies. - albuterol (PROVENTIL,VENTOLIN) 2.5 mg /3 mL (0.083 %) nebulizer solution; Inhale 3 mL (2.5 mg total) by nebulization every 6 (six) hours as needed for wheezing. Upper respiratory tract infection, unspecified type - albuterol (PROVENTIL,VENTOLIN) 2.5 mg /3 mL (0.083 %) nebulizer solution; Inhale 3 mL (2.5 mg total) by nebulization every 6 (six) hours as needed for wheezing. He is to continue his nebs at least 3 times daily for the next few days Off work for the next 4 days - he may return 11/03 He is to rest and hydrate, continue maintenance medications He has taken zithromax before without problems and will prednisone and something for cough as well LEONEL Lopez 10/31/23 1230 documented in this encounter [facility] 10-09-2023 History of Present illness Narrative History: Pt was referred to ENT because of left ear infection. Onset of infection was 1 year ago. Pt recently saw his physician and was told he still has fluid in the left ear. Initially pt's ear felt plugged and his hearing was decreased. Currently his hearing seems OK. History is positive for noise exposure (hunting and shooting.) History id positive for COM both ears as a child. Pt does not think he ever had ear surgery. Otoscopic Exam: Ear canal clear and TM intact AU Pure Tone Audiometry Right Ear: Normal hearing Left Ear: Normal hearing Speech Audiometry Right SRT = 20 dB and word discrimination score at 50 dBHL = 100% Left SRT = 20 dB and word discrimination score at 50 dBHL = 96% Tympanometry Right Ear: Type A tympanogram Left Ear: Type C tympanogram documented in this encounter [facility] 09-19-2023 History of Present illness Narrative [address] [place] [address] Patient: Lowell Nolasco Date of : 1990 Encounter Date: 09/19/2023 History of Present Illness: The patient is a 32 y.o. male, an established patient, and is here for Chief Complaint Patient presents with Sore Throat 2 weeks,burn on rt arm . HPI For the last 2 weeks patient has had a sore throat, increased sinus drainage, congestion, nonproductive cough, hoarse voice. He does not feel he has had any fevers but his symptoms are not improving. He does not feel his asthma has worsened with these upper respiratory symptoms, although his asthma has not been well controlled over the last 1 year. He has been in for a few visits for asthma exacerbations and has had to be on steroids. He states he used to use Advair Diskus when he was younger and he felt his symptoms were better controlled at that time. Problem List Items Addressed This Visit Respiratory Asthma Relevant Medications fluticasone furoate-vilanteroL (BREO ELLIPTA) 100-25 mcg/dose blister with device Other Visit Diagnoses Acute recurrent maxillary sinusitis - Primary Pharyngitis, unspecified etiology Relevant Orders POCT rapid strep A Past Medical, Family, and Social History Update: The following portions of the patient's history were reviewed and updated as appropriate: allergies, current medications, past family history, past medical history, past social history, past surgical history and problem list. Past Medical History: Diagnosis Date Asthma Seasonal allergies No past surgical history on file. Current Outpatient Medications Medication Sig Dispense Refill albuterol (PROVENTIL HFA;VENTOLIN HFA) 90 mcg/actuation inhaler albuterol sulfate HFA 90 mcg/actuation aerosol inhaler INHALE 2 PUFFS EVERY 4 HOURS BY INHALATION ROUTE NEEDED 18 g 6 albuterol (PROVENTIL,VENTOLIN) 2.5 mg /3 mL (0.083 %) nebulizer solution Inhale 3 mL (2.5 mg total) by nebulization every 6 (six) hours as needed for wheezing. 150 mL 1 fexofenadine HCl (PARIS ORAL) Take 180 mg by mouth daily. fluticasone propionate (FLONASE) 50 mcg/actuation nasal spray SPRAY 2 SPRAYS INTO EACH NOSTRIL EVERY DAY FOR 30 DAYS 48 mL 1 hydroCHLOROthiazide (MICROZIDE) 12.5 mg capsule Take 1 capsule (12.5 mg total) by mouth daily. 90 capsule 3 MOBIC 15 mg tablet Take 1 tablet (15 mg total) by mouth in the morning. montelukast (SINGULAIR) 10 mg tablet TAKE 1 TABLET BY MOUTH EVERY DAY 90 tablet 3 doxycycline (VIBRAMYCIN) 100 mg capsule Take 1 capsule (100 mg total) by mouth in the morning and 1 capsule (100 mg total) before bedtime. Do all this for 7 days. 14 capsule 0 fluticasone furoate-vilanteroL (BREO ELLIPTA) 100-25 mcg/dose blister with device Inhale 1 puff in the morning. 28 each 1 No current facility-administered medications for this visit. (All medications reviewed and updated by provider since last office visit or hospitalization) Allergies: Ampicillin, Ceclor [cefaclor], Claforan [cefotaxime], Pediazole [erythromycin-sulfisoxazole], and Sulfa (sulfonamide antibiotics) Tobacco History: Social History Tobacco Use Smoking Status Never Smokeless Tobacco Never (If patient a smoker, smoking cessation counseling offered) Social History: Social History Substance and Sexual Activity Alcohol Use Not Currently Alcohol/week: 4.0 standard drinks of alcohol Types: 4 Cans of beer per week Review of Systems: Review of Systems Constitutional: Positive for fatigue. Negative for fever. HENT: Positive for congestion, postnasal drip, rhinorrhea, sinus pressure and sore throat. Respiratory: Positive for cough. Negative for chest tightness, shortness of breath and wheezing. Cardiovascular: Negative. Gastrointestinal: Negative. Neurological: Positive for headaches. Physical Exam: BP 140/80 (BP Site: Left Arm, BP Postition: Sitting) Pulse 95 Temp 36.6 C (97.9 F) (Oral) Ht 180.3 cm (5' 11 ) Wt (!) 153.6 kg (338 lb 9.6 oz) SpO2 96% BMI 47.23 kg/m Physical Exam Vitals reviewed. Interpersonal Communications Professor present: here w daughter. Constitutional: Appearance: Normal appearance. He is obese. HENT: Head: Normocephalic and atraumatic. Right Ear: Ear canal normal. A middle ear effusion is present. Left Ear: Ear canal normal. A middle ear effusion is present. Nose: Congestion and rhinorrhea present. Right Sinus: No maxillary sinus tenderness or frontal sinus tenderness. Left Sinus: No maxillary sinus tenderness or frontal sinus tenderness. Mouth/Throat: Mouth: Mucous membranes are moist. Eyes: Pupils: Pupils are equal, round, and reactive to light. Cardiovascular: Rate and Rhythm: Normal rate and regular rhythm. Heart sounds: Normal heart sounds. Pulmonary: Effort: Pulmonary effort is normal. Breath sounds: Normal breath sounds. Abdominal: Palpations: Abdomen is soft. Tenderness: There is no abdominal tenderness. Musculoskeletal: General: No swelling. Lymphadenopathy: Cervical: No cervical adenopathy. Skin: General: Skin is warm. Capillary Refill: Capillary refill takes less than 2 seconds. Neurological: General: No focal deficit present. Mental Status: He is alert and oriented to person, place, and time. Psychiatric: Mood and Affect: Mood normal. Behavior: Behavior normal. Assessment and Plan: Lowell was seen today for sore throat. Diagnoses and all orders for this visit: Acute recurrent maxillary sinusitis Mild persistent asthma without complication Pharyngitis, unspecified etiology - POCT rapid strep A Other orders - fluticasone furoate-vilanteroL (BREO ELLIPTA) 100-25 mcg/dose blister with device; Inhale 1 puff in the morning. - doxycycline (VIBRAMYCIN) 100 mg capsule; Take 1 capsule (100 mg total) by mouth in the morning and 1 capsule (100 mg total) before bedtime. Do all this for 7 days. Follow-up: Patient's symptoms have been ongoing the last 2 weeks and have not improved so will start doxycycline for sinusitis- patient has multiple allergies. States doxycycline has worked well for him in the past when he has gotten sinus infections. Patient should keep follow-up with ENT on October 09 for recurrent sinusitis and middle ear fluid. Will step up his asthma therapy to Breo as patient has had a few asthma exacerbations this year and feels his asthma is not always under the best control. He was on Advair in the past but it is not clear which insurance will cover. Patient should follow-up with his PCP in January as scheduled. He was advised to get his flu shot at his pharmacy. BASSEM BARRIOS APRN-CNP 09/19/232010 documented in this encounter [facility] 05-17-2022 Evaluation note Encounter Date Diagnosis Assessment Notes Apr, Contact with and (suspected) exposure to other viral communicable diseases (ICD-10 - Z20.828) Apr, Acute exacerbation of asthma with allergic rhinitis (ICD-10 - J45.901) Advised patient that COVID antigen test was negative today. Advised patient that will treat as acute asthma exacerbation. Will send in rx of prednisone to use as directed. Encoruaged supportive care as directed, increase fluids and rest, Tylenol as directed, OTC Flonase, Paris-D, Albuterol Inhaler as needed, cool mist humidifier, throat lozenges. Discussed infection control practices such as good hand washing and mask wearing. Patient to follow up with PCP if symptoms persist or worsen despite treatment. Immediate eval for worsening SOB, difficulty, chest pain, fevers that do not break with antipyretic or any other concerning symptoms as reviewed on patient education handout. Patient verbalizes understanding and is agreeable to treatment plan. Patient left in stable condition [facility] Other 10-21-2021 Evaluation note* Encounter Date Diagnosis Assessment Notes Treatment Notes Treatment Clinical Notes May, Encounter for screening for other viral diseases (ICD-10 - Z11.59) May, Other Additional time spent conducting pre-visit phone call, screening for symptoms, instructions on social distancing, application and removal of PPE, and cleaning of examination room, equipment and supplies was preformed. Patient education given for testing methodology and results. Patient care instructions given in writting by [facility] document. [facility] Other Evaluation note* Diagnosis Acute recurrent maxillary sinusitis- Primary Mild persistent asthma without complication Pharyngitis, unspecified etiology [facility]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
[2024-04-12 00:18] VITALS: BP 167/105; PULSE 94; TEMP 36.9; O2SAT 100; BMI 50.2
--- NOTE | 2024-04-12 00:33 | XR_ITS ---
The [address] [address] Patient Name: DEBBIE COOPER MRN: [id number] date: 1990 Sex: M Assigned Patient Location: ER Current Patient Location: Accession/Order Number: [id number] Exam Date: 04/12/2024 01:04 Report Date: 04/12/2024 05:57 At the request of: JIGNESH NOWAK Procedure: XR knee RT 3V EXAM: XR knee RT 3V HISTORY: Atraumatic pain COMPARISON: None. TECHNIQUE: 3 views of the right knee were obtained. FINDINGS: No acute fracture or dislocation is seen. The joint spaces are preserved. There is a possible right knee joint effusion. XR/XR knee RT 3V IMPRESSION: 1. Possible right knee joint effusion with no acute fracture or dislocation seen. If there is concern for internal derangement, a nonemergent outpatient MRI is recommended. Electronically authenticated by: Keith CHAHAL Date: 04/12/2024 05:57
--- NOTE | 2024-04-12 00:34 | ED_ITS ---
HPI HPI - Extremity Injury (Lower) General Chief Complaint: Extremity Injury, Lower Stated Complaint: LE INJURY Time Seen by Provider: 04/12/24 00:30 Source: patient Mode of arrival: Wheelchair Limitations: no limitations History of Present Illness HPI Narrative: 33-year-old male presents to the emergency department for right knee pain. She did not injure it but it started hurting tonight when he went to go to bed. No other joint hurts. He has not had serious problems with that knee in the past. It hurts more if he bends over or walks on it. Related Data Home Medications ?Medication ?Instructions ?Recorded ?Confirmed albuterol sulfate 2.5 mg/3 mL 2.5 mg inhalation Q6H PRN 04/12/24 04/12/24 (0.083 %) solution for nebulization shortness of breath or wheezing budesonide 90 mcg/actuation breath 1 inh inhalation Q12H 04/12/24 04/12/24 activated powder inhaler (Pulmicort Flexhaler) fluticasone 100 mcg-salmeterol 50 1 inh inhalation Q12H 04/12/24 04/12/24 mcg/dose blistr powdr for inhalation hydrochlorothiazide 12.5 mg capsule 12.5 mg PO DAILY 04/12/24 04/12/24 meloxicam 15 mg tablet 15 mg PO DAILY 04/12/24 04/12/24 montelukast 10 mg tablet 10 mg PO DAILY 04/12/24 04/12/24 Previous Rx's ?Medication ?Instructions ?Recorded acetaminophen 300 mg-codeine 30 mg 1 tab PO Q6H PRN pain 5 days #20 04/12/24 tablet tabs Allergies Allergy/AdvReac Type Severity Reaction Status Date / Time Sulfa (Sulfonamide Allergy Unknown Unknown Verified 04/12/24 00:28 Antibiotics) ampicillin Allergy Hives Verified 04/12/24 00:28 cefaclor [From Ceclor] Allergy Palpitation Verified 04/12/24 00:28 s cefotaxime [From Claforan] Allergy Hives Verified 04/12/24 00:28 erythromycin base Allergy Hives Verified 04/12/24 00:28 [From Pediazole] sulfisoxazole Allergy Hives Verified 04/12/24 00:28 [From Pediazole] Opioid HPI Opioid Management Most Recent Pain and Opioid Data: Last Pain Scale 8 04/12/24 00:31 Last ED Pain Assessment 04/12/24 00:31 Review of Systems ROS Narrative A ten point review of systems is negative except as noted above. Exam Narrative Exam Narrative: Nurses note and vital signs reviewed and patient is not hypoxic. General: The patient appears well and in no apparent distress. Patient is resting comfortably on cart. Skin: Warm, dry, no pallor noted. There is no rash noted. Head: Normocephalic, atraumatic Eye: Normal conjunctiva, no drainage Ears, Nose, Mouth, and Throat: oral mucosa is moist. Nares patent. Cardiovascular: Regular Rate and Rhythm Respiratory: Patient is in no distress, no accessory muscle use, lungs are clear to auscultation, no wheezing, rales or rhonchi Back: non-tender GI: Soft and nontender Musculoskeletal: The right knee has no erythema bruise or rash. There does not seem to be tenderness on palpation in the knee joint is stable. No ballotable effusion. Neurological: Awake and alert Psychiatric: Cooperative Constitutional Vital Signs, click to edit/add: Last Vital Signs Temp 98.5 F 04/12/24 00:18 Pulse 94 H 04/12/24 00:18 Resp 16 04/12/24 00:18 BP 167/105 H 04/12/24 00:18 Pulse Ox 100 04/12/24 00:18 O2 Del Method Room Air 04/12/24 00:18 Course Vital Signs Vital signs: Vital Signs Temperature 98.5 F 04/12/24 00:18 Pulse Rate 94 H 04/12/24 00:18 Respiratory Rate 16 04/12/24 00:18 Blood Pressure 167/105 H 04/12/24 00:18 Pulse Oximetry 100 04/12/24 00:18 Oxygen Delivery Method Room Air 04/12/24 00:18 Temperature 98.5 F 04/12/24 00:18 Pulse Rate 94 H 04/12/24 00:18 Respiratory Rate 16 04/12/24 00:18 Blood Pressure 167/105 H 04/12/24 00:18 Pulse Oximetry 100 04/12/24 00:18 Oxygen Delivery Method Room Air 04/12/24 00:18 MDM - Extremity Injury (Lower) MDM Narrative Medical decision making narrative: X-ray of the knee on my interpretation shows no acute findings. Osmin wrap applied, application checked by me and found to be appropriate and he is neurovascular intact. Appointment made to see Dr. Simpson on April 13 at 10:15 AM. Treatment diagnosis and follow-up were discussed with the patient. Differential Diagnosis Differential diagnosis: Likely acute internal derangement of knee and other (Knee pain, knee fracture, knee sprain) Imaging Data Knee x-ray: My impression: No acute findings Discharge Plan Discharge Stand Alone Forms: Portal Instructions Chief Complaint: Extremity Injury, Lower Clinical Impression: Right knee sprain Patient Disposition: Home, Self-Care Time of Disposition Decision: 01:33 Condition: Good Mode of Transportation: Private Vehicle Prescriptions / Home Meds: New acetaminophen-codeine 300-30 mg tablet 1 tab PO Q6H PRN (Reason: pain) 5 Days Qty: 20 0RF No Action albuterol sulfate 2.5 mg /3 mL (0.083 %) solution for nebulization 2.5 mg inhalation Q6H PRN (Reason: shortness of breath or wheezing) Pulmicort Flexhaler 90 mcg/actuation aerosol powdr breath activated 1 inh INHALATION Q12H fluticasone propion-salmeterol 100-50 mcg/dose blister with device 1 inh INHALATION Q12H hydrochlorothiazide 12.5 mg capsule 12.5 mg PO DAILY meloxicam 15 mg tablet 15 mg PO DAILY montelukast 10 mg tablet 10 mg PO DAILY Print Language: Danish Instructions: Knee Sprain (ED), How to Use an Elastic Bandage (ED) Referrals: LAZARO HARLEY [Primary Care Provider] - 1 week Jv Simpson MD [Physician] - 04/13/24 10:15 am
[2024-04-12] MEDS: ACETAMINOPHEN 300 MG/ 30 MG CODEINE TABLET 1 TAB PO (01:58)
[2024-04-12 02:00] VITALS: BP 158/94; PULSE 105; O2SAT 95
== END 2024-04-12 02:04 | disposition home or self-care (01) ==
PROVIDERS: Emergency Provider Emergency Medicine; PCP Family Medicine
DX: S83.91XA Sprain of unspecified site of right knee, initial encounter (principal); X58.XXXA Exposure to other specified factors, initial encounter
CPT/HCPCS: 73562; 99283

== ENCOUNTER 2024-04-21 13:03 | Outpatient (OUT) | payer BC, SELFPAY ==
--- NOTE | 2024-04-21 13:07 | MR_ITS ---
[address] [address] Patient Name: DEBBIE COOPER MRN: [id number] date: 1990 Sex: M Assigned Patient Location: MRI Current Patient Location: Accession/Order Number: [id number] Exam Date: 04/21/2024 13:30 Report Date: 04/22/2024 06:34 At the request of: JUAN F ANTOINE Procedure: MR knee RT wo con EXAMINATION: MR knee RT wo con HISTORY: Right Knee Pain COMPARISON: No relevant comparison available. TECHNIQUE: A complete multi-planar MRI was performed. FINDINGS: MEDIAL COMPARTMENT MEDIAL MENISCUS: No visible tear or significant degeneration. CARTILAGE: No visible defect. BONES: No marrow pathology, fracture, or significant arthropathy. MCL AND MEDIAL CAPSULE: Grade I sprain of the medial collateral ligament. LATERAL COMPARTMENT LATERAL MENISCUS: Increased T2 signal within anterior horn in region of its medial attachment. No appreciable tear. CARTILAGE: No visible defect. BONES: No marrow pathology, fracture, or significant arthropathy. LCL/POSTEROLAT COMPLEX: Normal lateral collateral ligament, fascicles, lateral capsule and ligaments. ANTERIOR COMPARTMENT PATELLA: No marrow pathology, fracture, or significant arthropathy. CARTILAGE: No visible defect. TENDONS: Normal. EFFUSION: None. No synovitis or loose bodies. ACL: Normal appearing ligament. PCL: Normal appearing ligament. MENISCOFEMORAL: Normal meniscofemoral ligaments. OTHER: Negative. MR/MR knee RT wo con IMPRESSION: 1. Minimal sprain of medial collateral ligament. 2. Slight increased T2 signal within medial attachment of the anterior horn of the lateral meniscus without appreciable tear; nonspecific. Electronically authenticated by: JUAN F KEITH Date: 04/22/2024 06:34
== END 2024-04-21 13:04 | disposition home or self-care (01) ==
LOC: MRI 13:03
PROVIDERS: PCP Family Medicine; Visit Provider Orthopaedic Surgery
DX: M25.561 Pain in right knee (principal); S83.411A Sprain of medial collateral ligament of right knee, initial encounter
CPT/HCPCS: 73721

== ENCOUNTER 2024-07-27 10:11 | Outpatient (OUT) | payer BC, SELFPAY ==
--- NOTE | 2024-07-27 | XR_ITS ---
The [address] [address] Patient Name: DEBBIE COOPER MRN: [id number] date: 1990 Sex: M Assigned Patient Location: Current Patient Location: Accession/Order Number: [id number] Exam Date: 07/27/2024 10:18 Report Date: 07/28/2024 06:41 At the request of: JUAN F ANTOINE Procedure: XR knee LT 4V PROCEDURE: XR knee LT 4V HISTORY: LEFT KNEE PAIN COMPARISON: None. FINDINGS: BONES:No fracture, acute abnormality, or significant arthropathy. SOFT TISSUES:No visible soft tissue swelling. EFFUSION:None visible. OTHER: Negative. XR/XR knee LT 4V IMPRESSION: 1. Normal examination. Electronically authenticated by: JUAN F KEITH Date: 07/28/2024 06:41
--- OUTSIDE RECORDS SUMMARY | 2024-07-27 10:28 | XMS_ITS | CCD ---
Author Organization [facility] Inform ion Partnership [facility] Care Team Providers Care Supervisor Special Education Name Role Phone Luna Richey Unavailable Lorenzo Mireya Unavailable CHERRI, DR TORIBIO Willson Admitting Unavailable FURLONG, DR TORIBIO Willson Attending Unavailable FURLONG, DR TORIBIO Willson Primary Care Unavailable FURLONG, DR TORIBIO Willson Consulting Unavailable Furlong Toribio CARRENO Primary Care Provider [phone] Toribio Hurley MD Primary Care Provider [phone] DENNISE PEDERSEN Attending Unavailable HAZEL JULIAN Attending Unavailable ISI LAURENT Referring Unavailable RUSHER, DENNISE Mullins Attending Unavailable LAISHA PARK Attending Unavailable ISI LAURENT Referring Unavailable RUSHER, DENNISE Mullins Attending Unavailable ROGELIO, DENNISE Mullins Referring Unavailable FURLONG, TORIBIO Willson Referring Unavailable FURLONG, TORIBIO Willson Primary Care Unavailable ISI LAURENT Attending Unavailable FURLONG, TORIBIO Willson Referring Unavailable FURLONG, TROIBIO Willson Primary Care Unavailable FURLONG, TORIBIO Willson Attending Unavailable FURLONG, TORIBIO G Referring Unavailable FURLONG, TORIBIO Willson Primary Care Unavailable CAMI VILLALOBOS Attending Unavailable FURLONG, TORIBIO G Referring Unavailable FURLONG, TORIBIO Willson Primary Care Unavailable FURLONG, TORIBIO G Attending Unavailable FURLONG, TORIBIO G Referring Unavailable FURLONG, TORIBIO G Primary Care Unavailable Allergies Allergy Classification Reported Allergen(s) Allergy Type Date of Onset Reaction(s) Facility (12 sources) Ampicillin; Translations: [AMPICILLIN] Drug Allergy 02-12-20 Unknown [facility] Work Phone: (3 sources) Cefaclor; Translations: [Ceclor] Drug Allergy 07-01-20 16 unknow from young age [facility] Repository (3 sources) Cefotaxime; Translations: [Claforan] Drug Allergy 07-01-20 16 see above [facility]ository (3 sources) Erythromycin / sulfiSOXAZOLE; Translations: [Pediazole] Drug Allergy 07-01-20 16 see above [facility]ository (2 sources) Sulfonamides (Antibiotic) Propensity to adverse reactions see above [employer] Other (1 source) Penicillins Drug allergy (disorder) 01-13-20 14 [facility] (1 source) Sulfonamides (Antibiotic) Drug allergy (disorder) 07-01-20 16 [facility] (10 sources) Cefaclor; Translations: [CEFACLOR] Drug Allergy 02-12-20 19 [facility] (10 sources) Cefotaxime; Translations: [CEFOTAXIME] Drug Allergy 02-12-20 19 [facility] [employer] (7 sources) Erythromycin / sulfiSOXAZOLE; Translations: [ERYTHROMYCIN-HARLEY LFISOXAZOLE] Drug Allergy 02-12-20 19 [facility] (10 sources) Sulfonamides (Antibiotic); Translations: [SULFA (SULFONAMIDE ANTIBIOTICS)] Propensity to adverse reactions to drug 02-12-20 19 [facility] Medications Current Medications Medication Drug Class(es) Dates Sig (Normalized) Sig (Original) albuterol 0.83 mg/ml inhalation solution (15 sources) beta2-Adrenergic Agonist Start: 05-14-2023 End: 10-31-2023 [...] 150 mL 1 10/31/2023 Active Start: 10-17-2022 End: 07-06-2024 take 2 puff(s) by inhalation every four hours as needed albuterol (PROVENTIL HFA;VENTOLIN HFA) 90 mcg/actuation inhaler Indications: Mild intermittent asthma with exacerbation albuterol sulfate HFA 90 mcg/actuation aerosol inhaler INHALE 2 PUFFS EVERY 4 HOURS BY INHALATION ROUTE NEEDED 18 g 6 10/17/2022 07/06/2024 Discontinued (Therapy completed) Start: 10-17-2022 take 2 puff(s) by in halation every four hours as needed albuterol HFA 90 mcg/act inhaler albuterol sulfate HFA 90 mcg/actuation aerosol inhaler INHALE 2 PUFFS EVERY 4 HOURS BY INHALATION ROUTE NEEDED 10/17/2022 Active Albuterol Active albuterol-budesonide (AIRSUPRA) 90-80 mcg/actuation HFA aerosol inhaler (1 source) Start: 07-06-2024 take 2 puff(s) by inhalation every four hours as needed albuterol-budesonide (AIRSUPRA) 90-80 mcg/actuation HFA aerosol inhaler Inhale 2 puffs every 4 (four) hours as needed (SOB, wheeze). 10.7 g 1 07/06/2024 Active azithromycin 250 mg oral tablet (1 [...] days.. 6 tablet 0 10/31/2023 11/05/2023 Active bacitracin 0.5 unt/mg / polymyxin b 10 unt/mg topical ointment (2 sources) Polymyxin-class Antibacterial Start: 02-06-2024 bacitracin zinc-polymyxin B (POLYSPORIN) 500-10,000 unit/gram ointment Apply 1 Application topically in the morning and 1 Application before bedtime. 30 g 02/06/2024 Active brompheniramine maleate 0.4 mg/ml / dextromethorphan hydrobromide 2 mg/ml / pseudoephedrine hydrochloride 6 mg/ml oral solution (2 sources) alpha-Adrenergic Agonist, Uncompetitive M-uhofya-P-aspar montero Receptor Antagonist, Sigma-1 Agonist Start: 10-31-2023 take 5 mL by mouth four times daily as needed brompheniramine-pseudo eph-DM 2-30-10 mg/5 mL syrup Indications: Mild intermittent asthma with exacerbation Take 5 mL by mouth 4 (four) times a day as needed for allergies. 120 mL 1 10/31/2023 Active 60 actuat budesonide 0.09 mg/actuat dry powder inhaler (4 sources) Corticosteroid Start: 07-13-2023 take 1 puff(s) by inhalation at bedtime budesonide (Pulmicort Flexhaler) 90 MCG/ACT inhaler INHALE 1 PUFF IN THE MORNING AND BEFORE BEDTIME 07/13/2023 Active Start: 07-13-2023 End: 09-19-2023 take [...] Active fexofenadine hydrochloride 180 mg oral tablet (5 sources) Histamine-1 Receptor Antagonist take 180 mg by mouth once daily fexofenadine HCl (PARIS ORAL) Take 180 mg by mouth daily. Active fluticasone propionate 0.05 mg/actuat metered dose nasal spray (5 sources) Corticosteroid Start: 12-31-2023 take 2 spray(s) nasal route once daily fluticasone propionate (FLONASE) 50 mcg/actuation nasal spray Indications: Acute nasopharyngitis (common cold) USE 2 SPRAYS IN EACH NOSTRIL EVERY DAY FOR 30 DAYS 16 mL 5 12/31/2023 Active Start: 06-05-2023 take 2 spray(s) nasa l route once daily fluticasone propionate (FLONASE) 50 mcg/actuation nasal spray Indications: Acute nasopharyngitis (common cold) SPRAY 2 SPRAYS INTO EACH NOSTRIL EVERY DAY FOR 30 DAYS 48 mL 1 06/05/2023 Active fluticasone / salmeterol (3 sources) Corticosteroid, beta2-Adrenergic Agonist Start: 06-26-2024 take 1 puff(s) by inhalation at bedtime fluticasone propion-salmeteroL (ADVAIR) 100-50 mcg/dose DISKUS INHALE 1 PUFF IN THE MORNING AND BEFORE BEDTIME 180 each 1 06/26/2024 Active Start: 12-26-2023 End: 06-26-2024 take 1 puff(s) by inhalation in the morning fluticasone propion-salmeteroL (ADVAIR DISKUS) 100-50 mcg/dose DISKUS Inhale 1 puff in the morning and 1 puff before bedtime. 60 each 5 12/26/2023 06/26/2024 Discontinued 30 actuat fluticasone furoate 0.1 mg/actuat / vilanterol 0.025 mg/actuat dry powder inhaler (5 sources) Corticosteroid, beta2-Adrenergic Agonist Start: 11-11-2023 take 1 puff(s) by inhalation in the morning fluticasone furoate-vilanteroL (BREO ELLIPTA) 100-25 mcg/dose blister with device INHALE 1 PUFF IN THE MORNING 60 each 1 11/11/2023 Active Start: 09-19-2023 End: 11-11-2023 take 1 puff(s) by inhalation in the morning Fluticasone Furoate-Vilanterol 100-25 MCG/ACT aerosol powder Inhale 1 puff in the morning. 09/19/2023 Active hydroCHLOROthiazide 12.5 mg oral capsule (8 sources) Thiazide Diuretic Start: 07-30-2023 take 1 capsule by mouth once daily hydroCHLOROthiazide (MICROZIDE) 12.5 mg capsule Indications: Primary hypertension Take 1 capsule (12.5 mg total) by mouth daily. 90 capsule 3 07/30/2023 Active meloxicam 15 mg oral tablet (5 sources) Nonsteroidal Anti-inflammator y Drug Start: 01-13-2024 End: 05-26-2024 take 1 tablet by mouth in the morning meloxicam (MOBIC) 15 mg tablet TAKE 1 TABLET BY MOUTH IN THE MORNING 01/13/2024 Active Start: 09-03-2023 End: 09-24-2023 take 1 tablet by mouth in the morning MOBIC 15 mg tablet Take 1 tablet (15 mg total) by mouth in the morning. 0 09/03/2023 09/24/2023 Active methylPREDNISolone 4 mg oral tablet (4 sources) Corticosteroid Start: 07-06-2024 take 1 tablet by mouth in the morning methylPREDNISolone (MEDROL, MADIHA,) 4 mg tablet Take 1 tablet (4 mg total) by mouth in the morning. follow package directions. 21 tablet 07/06/2024 Active Start: 09-03-2023 methylPREDNISo lone (Medrol Dospak) 4 MG tablets Indications: Plantar fasciitis Take as directed on package. 21 tablet 09/03/2023 Active Start: 09-03-2023 methylPREDNISo lone (Medrol Dospak) 4 MG tablets Indications: Plantar fasciitis Take as directed on package. 21 tablet 0 09/03/2023 Active montelukast 10 mg oral tablet (9 sources) Leukotriene Receptor Antagonist Start: 12-26-2022 take 1 tablet by mouth once daily montelukast (SINGULAIR) 10 mg tablet take 1 tablet by mouth every day 90 tablet 3 01/10/2024 Active Singulair Active predniSONE 20 mg oral tablet (2 sources) Start: 10-31-2023 End: 11-07-2023 take 1 tablet by mouth in the morning predniSONE (DELTASONE) 20 mg tablet Indications: Mild intermittent asthma with exacerbation Take 1 tablet (20 mg total) by mouth in the morning for 7 days. 7 tablet 0 10/31/2023 11/07/2023 Active Start: 05-17-2022 take 3 tablets by [facility] every twenty-four hours prednisone 20 MG 3 tablets Orally daily for 5 days Apr, Active Problems Active Problems Problem Classification Problem Date Documented Date Episodic/Chronic Asthma (18 sources) Acute exacerbation of asthma co-occurrent with allergic rhinitis; Translations: [Unspecified asthma with (acute) exacerbation] Onset: 05-06-2018 Chronic Disorders of lipid metabolism (5 sources) Hypertriglyceridemia; Translations: [Pure hyperglyceridemia] Onset: 05-27-2019 06-21-2022 Chronic Essential hypertension (7 sources) Essential hypertension; Translations: [Essential (primary) hypertension] Onset: 07-30-2023 07-30-2023 Chronic Headache; including migraine (1 source) Headache Onset: 07-06-2024 Episodic Immunizations and screening for infectious disease (3 sources) Encounter for screening for other viral diseases; Translations: [Contact with and (suspected) exposure to other viral communicable diseases] Onset: 06-15-2021 Resolved: 06-15-2021 Episodic Malaise and fatigue (1 source) Fatigue Onset: 07-06-2024 Episodic Other lower respiratory disease (1 source) Cough Onset: 07-06-2024 Episodic Other nutritional; endocrine; and metabolic disorders (5 sources) High density lipoprotein deficiency ; Translations: [Lipoprotein deficiency] Onset: 05-27-2019 06-21-2022 Chronic Other nutritional; endocrine; and metabolic disorders (5 sources) Morbid obesity; Translations: [Morbid (severe) obesity [...] SCREENING FOR CV DISORDERS] Onset: 07-18-2022 Episodic Other upper respiratory disease (1 source) Nasal congestion Onset: 07-06-2024 Episodic Otitis media and related conditions (1 source) Dysfunction of left eustachian tube; Translations: [Unspecified Eustachian tube disorder, left ear] 10-09-2023 Episodic Past or Other Problems Problem Classification Problem Date Documented Da te Episodic/Chronic Diabetes mellitus without complication (3 sources) Hyperglycemia; Translations: [Hyperglycemia, unspecified] Onset: 02-04-2024 02-04-2024 Episodic Mood disorders (5 sources) Mood disorders Onset: 09-19-2023 Resolved: 07-06-2024 09-19-2023 Other connective tissue disease (3 sources) Plantar fasciitis; Translations: [Plantar fascial fibromatosis] Onset: 02-04-2024 05-26-2024 Episodic Other connective tissue disease (1 source) Plantar fascial fibromatosis; Translations: [Plantar fascial fibromatosis] Onset: 02-04-2024 Episodic Other inflammatory condition of skin (1 source) Sunburn of second degree; Translations: [Sunburn of second degree] Onset: 02-04-2024 Episodic Other lower respiratory disease (1 source) Shortness of breath Onset: 10-31-2023 Episodic Other upper respiratory disease (1 source) Pain in throat Onset: 10-31-2023 Episodic Other upper respiratory infections (6 sources) Acute recurrent maxillary sinusitis; Translations: [Acute maxillary sinusitis] Onset: 09-19-2023 09-19-2023 Episodic Unclassified (5 sources) Onset: 07-30-2023 07-30-2023 Results Test Name Value Interpretation Reference Range Facility POCT Influenza A/Influenza B /SARS-COV-[address] [facility] 07-06-2024 External Poct Influenza A Antigen Negative [facility] External Poct Influenza B Antigen Negative [facility] SARS-CoV-2 (COVID-19) Ag IA.rapid Ql (Resp) Negative [facility] BASIC METABOLIC PANLon 02-03 Anion gap [Moles/Vol] 10 mmol/L Normal 5-15 [facility] Comment on above: Performed By: #### JING Wood MP #### [facility] ([id number]) [address], [address] [place] [address] Calcium [Mass/Vol] 9.6 mg/dL Normal 8.5-10.5 [facility] Comment on above: Performed By: #### JING Wood MP #### [facility] ([id number]) [address] [place] [address] Chloride [Moles/Vol] 101 mmol/L Normal 98-109 [facility] Comment on above: Performed By: #### JING Wood MP #### [facility] ([id number]) [address], [address] [place] [address] CO2 [Moles/Vol] 27 mmol/L Normal 22-32 [facility] Comment on above: Performed By: #### JING Wood MP #### [facility] ([id number]) [address] [place] [address] Creatinine [Mass/Vol] 0.84 mg/dL Normal 0.60-1.30 [facility] Comment on above: Result Comment: METH OD TRACEABLE TO IDMS STANDARD Performed By: #### JING Wood MP #### [facility] ([id number]) [address], [address] [place] [address] eGFR (CKD-EPI) NON-RACE DEPENDENT >90 Normal >59 [facility] Comment on above: Result Comment: Reported eGFR is based on the CKD-EPI 2020 equation that does not use a race coefficient. Performed By: #### JING Wood MP #### [facility] ([id number]) [address] [place] [address] Glucose [Mass/Vol] 90 mg/dL Normal 65-99 [facility] Comment on above: Performed By: #### JING Wood MP #### [facility] ([id number]) [address] [place] [address] Potassium [Moles/Vol] 3.5 mmol/L Normal 3.5-5.0 [facility] Comment on above: Performed By: #### JING Wood MP #### [facility] ([id number]) [address] [place] [address] Sodium [Moles/Vol] 138 mmol/L Normal 134-146 [facility] Comment on above: Performed By: #### JING Wood MP #### [facility] ([id number]) [address] [place] [address] Urea nitrogen [Mass/Vol] 13 mg/dL Normal - [facility] Comment on above: Performed By: #### Nina DOSS, JING #### [facility] ([id number]) [address] [place] [address] HGB A1C (GLYCO-HGB)on 2023 Glucose [Mass/Vol] 111 mg/dL Normal [facility] Comment on above: Performed By: #### Nina DOSS, JING #### [facility] ([id number]) [address], [facility] [address] [place] [address] HbA1c (Bld) [Mass fraction] 5.5 % Normal 4.4-5.6 [facility] Comment on above: Result Comment: NOTE ADA Guidelines Result HgbA1c Normal : less than 5.7 % Prediabetes : 5.7 % to 6.4 % Diabetes : > 6.4 % Use with caution in patients with abnormal hemoglobin variants as the half-life of red blood cells and in vivo glycation rates are affected. Performed By: #### Nina DOSS, JING #### [facility] ([id number]) [address], [facility] [address] [place] [address] Auditory function testson Bilateral Normal hearing [facility] rapid strep Aon 024 Internal Fnps Check Completed and Passed Yes [facility] Interpretation and review of laboratory results Normal [facility] S. pyogenes Ag IA Ql (Unsp spec) Negative Negative [facility] LIPID PROFILEon 07-18-2022 CHOL-HDL RATIO NORM SEE BELOW Normal [facility] Comment on above: Result Comment: 3.3 - 4.4 LOW RISK 4.4 - 7.1 AVERAGE RISK 7.1 - 11.0 MODERATE RISK >11.0 HIGH RISK Performed By: #### C MP, LIPID #### [facility] [address] [address] [address] Lois Ugalde Cholesterol [Mass/Vol] 176 mg/dL Normal <=200 [facility] Comment on above: Performed By: #### C MP, LIPID #### [facility] [address] [address] [address] Lois Ugalde Cholesterol in HDL [Mass/Vol] 32 mg/dL Critically low 40-60 [facility] Comment on above: Performed By: #### C MP, LIPID #### [facility] [address] [address] [address] Lois Ugalde Cholesterol in LDL [Mass/Vol] 111.6 mg/dL Normal [facility] Comment on above: Performed By: #### C MP, LIPID #### [facility] [address] [address] [address] Lois Ugalde Cholesterol.total/C holesterol in HDL [Mass ratio] 5.5 {ratio} Normal [facility] Comment on above: Performed By: #### C MP, LIPID #### [facility] [address] [address] [address] Lois Ugalde HDL NORMAL > or = 60 mg/dl - LOW CARDIOVASCULAR RISK <40 mg/dl - HIGH CARDIOVASCULAR RISK Normal [facility] Comment on above: Performed By: #### C MP, LIPID #### [facility] [address] [address] [address] Lois Ugalde LDL CALC NORMAL SEE BELOW Normal [facility] Comment on above: Result Comment: <100 mg/dl OPTIMAL 100 - 129 mg/dl NEAR OR ABOVE OPTIMAL 130 - 159 mg/dl BORDERLINE HIGH 160 - 189 mg/dl HIGH >190 mg/dl VERY HIGH Performed By: #### C MP, LIPID #### [facility] [address] [address] [address] Lois Ugalde Triglyceride [Mass/Vol] 162 mg/dL Critically high <=150 [facility] Comment on above: Performed By: #### C MP, LIPID #### [facility] [address] [address] [address] Lois Ugalde VLDL CALC 32.4 mg/dL Normal [facility] Comment on above: Performed By: #### C MP, LIPID #### [facility] [address] [place] [address] Dr. Lois Ugalde PROF 14(COMP METB)on 022 Albumin [Mass/Vol] 3.8 g/dL Normal 3.4-5.0 [facility] Comment on above: Performed By: #### C MP, LIPID #### [facility] [address] [place] [address] Dr. Lois Ugalde Albumin/Globulin [Mass ratio] 1.2 {ratio} Normal [facility] Comment on above: Performed By: #### C MP, LIPID #### [facility] [address] [place] [address] Dr. Lois Ugalde ALP [Catalytic activity/Vol] 69 U/L Normal 46-116 [facility] Comment on above: Performed By: #### C MP, LIPID #### [facility] [address] [place] [address] Dr. Lois Ugalde ALT [Catalytic activity/Vol] 37 U/L Normal 16-63 [facility] Comment on above: Performed By: #### C MP, LIPID #### [facility] [address] [place] [address] Dr. Lois Ugalde Anion gap [Moles/Vol] 10.5 mmol/L Normal [facility] Comment on above: Performed By: #### C MP, LIPID #### [facility] [address] [place] [address] Dr. Lois Ugalde AST [Catalytic activity/Vol] 18 U/L Normal 15-37 [facility] Comment on above: Performed By: #### C MP, LIPID #### [facility] [address] [place] [address] Dr. Lois Ugalde Bilirubin [Mass/Vol] 0.9 mg/dL Normal 0.2-1.0 [facility] Comment on above: Performed By: #### C MP, LIPID #### [facility] [address] [place] [address] Dr. Lois Ugalde Calcium [Mass/Vol] 9.0 mg/dL Normal 8.5-10.1 [facility] Comment on above: Performed By: #### C MP, LIPID #### [facility] [address] [place] [address] Dr. Lois Ugalde Chloride [Moles/Vol] 105 mmol/L Normal 98-107 [facility] Comment on above: Performed By: #### C MP, LIPID #### [facility] [address] [place] [address] Dr. Lois Ugalde CO2 [Moles/Vol] 28.7 mmol/L Normal 21.0-32.0 [facility] Comment on above: Performed By: #### C MP, LIPID #### [facility] [address] [place] [address] Dr. Lois Ugalde Creatinine [Mass/Vol] 0.86 mg/dL Normal 0.70-1.30 [facility] Comment on above: Performed By: #### C MP, LIPID #### [facility] [address] [place] [address] Dr. Lois Ugalde EGFR-AF CYPRIOT >60 Normal >=60 [facility] Comment on above: Performed By: #### C MP, LIPID #### [facility] [address] [place] [address] Dr. Lois Ugalde EGFR-NON AF CYPRIOT >60 Normal >=60 [facility] Comment on above: Performed By: #### C MP, LIPID #### [facility] [address] [place] [address] Dr. Lois Ugalde Globulin (S) [Mass/Vol] 3.1 g/dL Normal [facility] Comment on above: Performed By: #### C MP, LIPID #### [facility] [address] [place] [address] Dr. Lois Ugalde Glucose [Mass/Vol] 99 mg/dL Normal 74-106 [facility] Comment on above: Performed By: #### C MP, LIPID #### [facility] [address] [place] [address] Dr. Lois Ugalde Potassium [Moles/Vol] 4.2 mmol/L Normal 3.5-5.1 [facility] Comment on above: Performed By: #### C MP, LIPID #### [facility] [address] [address] [address] Lois Ugalde Protein [Mass/Vol] 6.9 g/dL Normal 6.4-8.2 [facility] Comment on above: Performed By: #### C MP, LIPID #### [facility] [address] [address] [address] Lois Ugalde Sodium [Moles/Vol] 140 mmol/L Normal 136-145 [facility] Comment on above: Performed By: #### C MP, LIPID #### [facility] [address] [place] [address] Dr. Lois Ugalde Urea nitrogen [Mass/Vol] 12.0 mg/dL Normal 7.0-18.0 [facility] Comment on above: Performed By: #### C MP, LIPID #### [facility] [address] [address] [address] Lois Ugalde Urea nitrogen/Creatinine [Mass ratio] 14.0 mg/mg Normal [facility] Comment on above: Performed By: #### C MP, LIPID #### [facility] [address] [place] [address] Dr. Lois Ugalde SARS-CoV-2 (COVID-19) RNA NA A+probe Ql (Resp)on 05-17-2022 SARS-CoV-2 (COVID-19) RNA ADELA+probe Ql (Unsp spec) Negative [employer] Other COMPREHENSIVE METABOLIC PANE [facility] 07-05-2021 Albumin [Mass/Vol] 4.5 g/dL Normal 3.6-5.1 [facility] Comment on above: Performed By: #### 7 600, [id number] #### [facility] [address], [address] [place] [address] Swine Genetics Researcher: Lg Butcher MD Albumin/Globulin [Mass ratio] 2.0 {ratio} Normal 1.0-2.5 [facility] Comment on above: Performed By: #### 7 600, [id number] #### [facility] of [address], [address] [place] [address] Swine Genetics Researcher: Lg Butcher MD ALP [Catalytic activity/Vol] 72 U/L Normal 36-130 [facility] Comment on above: Performed By: #### 7 600, [id number] #### [facility] of [address], [address] [place] [address] Swine Genetics Researcher: Lg Butcher MD ALT [Catalytic activity/Vol] 31 U/L Normal 9-46 [facility] Comment on above: Performed By: #### 7 600, [id number] #### [facility] of [address], [address] [place] [address] Swine Genetics Researcher: Lg Butcher MD AST [Catalytic activity/Vol] 21 U/L Normal 10-40 [facility] Comment on above: Performed By: #### 7 600, [id number] #### [facility] of [address], [address] [place] [address] Swine Genetics Researcher: gL Butcher MD Bilirubin [Mass/Vol] 0.9 mg/dL Normal 0.2-1.2 [facility] Comment on above: Performed By: #### 7 600, [id number] #### [facility] of [place] [address] Swine Genetics Researcher: Lg Butcher MD BUN/CREATININE RATIO NOT APPLICABLE Normal 6-22 [facility] Comment on above: Performed By: #### 7 600, [id number] #### [facility] [address], [address] [place] [address] Swine Genetics Researcher: Lg Butcher MD Calcium [Mass/Vol] 9.6 mg/dL Normal 8.6-10.3 [facility] Comment on above: Performed By: #### 7 600, [id number] #### [facility] [address], [address] [place] [address] Swine Genetics Researcher: Lg Butcher MD Chloride [Moles/Vol] 104 mmol/L Normal 98-110 [facility] Comment on above: Performed By: #### 7 600, 24367 #### [facility] [address], [address] [place] [address] Swine Genetics Researcher: Lg Butcher MD CO2 [Moles/Vol] 28 mmol/L Normal 20-32 [facility] Comment on above: Performed By: #### 7 600, [id number] #### [facility] [place] [address] Swine Genetics Researcher: Lg Butcher MD Creatinine [Mass/Vol] 0.85 mg/dL Normal 0.60-1.35 [facility] Comment on above: Performed By: #### 7 600, [id number] #### [facility] [place] [address] Swine Genetics Researcher: Lg Butcher MD eGFR NON-AFR. CYPRIOT 115 mL/min/1.73m2 Normal > OR = 60 [facility] Comment on above: Performed By: #### 7 600, 59106 #### [facility] [place] [address] Swine Genetics Researcher: Lg Butcher MD GFR/1.73 sq M.predicted among blacks MDRD (S/P/Bld) [Vol rate/Area] 134 mL/min/{1.73_m2} Normal > OR = 60 [facility] Comment on above: Performed By: #### 7 600, 34515 #### [facility] [place] [address] Swine Genetics Researcher: Lg Butcher MD Globulin (S) [Mass/Vol] 2.2 g/dL Normal 1.9-3.7 [facility] Comment on above: Performed By: #### 7 600, 74946 #### [facility] [place] [address] Swine Genetics Researcher: Lg Butcher MD Glucose [Mass/Vol] 81 mg/dL Normal 65-99 [facility] Comment on above: Result Comment: Fasting reference interval Performed By: #### 7 600, [id number] #### [facility] of [address], [address] [place] [address] Swine Genetics Researcher: Lg Butcher MD Potassium [Moles/Vol] 4.1 mmol/L Normal 3.5-5.3 [facility] Comment on above: Performed By: #### 7 600, [id number] #### [facility] [address], [address] [place] [address] Swine Genetics Researcher: Lg Butcher MD Protein [Mass/Vol] 6.7 g/dL Normal 6.1-8.1 [facility] Comment on above: Performed By: #### 7 600, 43616 #### [facility] [address], [address] [place] [address] Swine Genetics Researcher: Lg Butcher MD Sodium [Moles/Vol] 140 mmol/L Normal 135-146 [facility] Comment on above: Performed By: #### 7 600, 46168 #### [facility] [address], [address] [place] [address] Swine Genetics Researcher: Lg Butcher MD Urea nitrogen [Mass/Vol] 12 mg/dL Normal 7-25 [facility] Comment on above: Performed By: #### 7 600, 28028 #### [facility] [address], [address] [place]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
== END 2024-07-27 10:12 | disposition home or self-care (01) ==
LOC: EC 10:12
PROVIDERS: PCP Family Medicine; Visit Provider Orthopaedic Surgery
DX: M25.562 Pain in left knee (principal)
CPT/HCPCS: 73564